=== PATIENT | female | born 1970 | race Caucasian/White ===

== ENCOUNTER 2017-05-06 00:22 | Emergency (ER) | payer BC ==
[2017-05-06] MEDS: MAGNESIUM HYDROXIDE/AL HYDROX 30 ML, LIDOCAINE VISC 2% 200 MG PO ONE ×2 (00:35)
[2017-05-06] MEDS: ONDANSETRON HCL IV 4 MG/2 ML VIAL IVP ONE (00:36)
[2017-05-06] MEDS: 0.9 % SODIUM CHLORIDE 1,000 ML BAG IV ONE (00:41)
[2017-05-06 00:53] LABS: BASO % 1.1 % (0-6); EOS % 7.7 % (0-6); GRAN % 38.1 % (47-80); HEMATOCRIT 42.1 % (35.0-47.0); HEMOGLOBIN 14.1 gm/dl (11.6-16.0); MEAN CELL VOLUME 89.8 fl (81-97); MEAN CORPUSCULAR HEMOGLOBIN 30.1 pg (27-33); MEAN CORPUSCULAR HGB CONC 33.5 g/dl (32-36); MEAN PLATELET VOLUME 10.3 fl (7.4-10.4); MONO % 8.1 % (0-9); PLATELET COUNT 323 K/uL (130-400); RED BLOOD COUNT 4.69 M/uL (3.80-5.40); RED CELL DISTRIBUTION WIDTH 13.3 % (11.5-14.5); WHITE BLOOD COUNT W/O DIFF 13.5 K/uL (4.2-12.2)
[2017-05-06 01:20] LABS: ALB/GLOB RATIO 1.6 (1.1-1.8); ALBUMIN 4.5 g/dL (4.0-5.0); ALKALINE PHOSPHATASE 76 U/L (35-104); ALT/SGPT 17 U/L (<33); AST/SGOT 24 U/L (10.0-35.0); BLOOD UREA NITROGEN 20 mg/dL (6-20); CREATININE 0.5 mg/dL (0.5-0.9); EST GLOMERULAR FILTRATION RATE > 60 mL/min; GLUCOSE,RANDOM 100 mg/dL (74-109); LIPASE 50 U/L (13-60); TOTAL PROTEIN 7.4 g/dL (6.6-8.7)
--- NOTE | 2017-05-06 01:30 | Emergency Department Record ---
History of Present Illness - General Chief Complaint: Abdominal Pain Stated Complaint: SEVERE ABD PAIN Time Seen by Provider: 05/06/17 00:31 Source: Patient Mode of Arrival: Ambulatory Limitations: No limitations - History of Present Illness Initial Comments: pt had ap off and on all day then took ibuprofen and pain became much worse. no v/c/d MD Complaint: Abdominal pain -: Hour(s) Location: Epigastric Radiation: Back, Chest Quality: Cramping Consistency: Constant, Getting worse Improves With: Nothing Worsens With: Movement Associated Symptoms: Vomiting - Related Data Previous Rx's Medication Instructions Recorded Omeprazole [Prilosec] 20 mg PO DAILY #20 05/06/17 Allergies Allergy/AdvReac Type Severity Reaction Status Date / Time gluten Allergy GI issues Verified 05/06/17 00:25 Sulfa (Sulfonamide Allergy RASH Verified 07/04/16 09:14 Antibiotics) Travel Screening - Travel/Exposure Within Last 30 Days Have you traveled within the last 30 days?: No - Travel Symptoms Symptom Screening: None Review of Systems Reviewed: No additional complaints except as noted below Constitutional: Reports: As per HPI. Denies: Chills, Fever, Malaise, Night sweats, Weakness, Weight change Eyes: Reports: As per HPI. Denies: Eye discharge, Eye pain, Photophobia, Vision change ENT: Reports: As per HPI. Denies: Congestion, Dental pain, Ear pain, Epistaxis , Hearing loss, Throat pain Respiratory: Reports: As per HPI. Denies: Cough, Dyspnea, Hemoptysis, Stridor, Wheezes Cardiovascular: Reports: As per HPI. Denies: Arrhythmia, Chest pain, Dyspnea on exertion, Edema, Murmurs, Orthopnea, Palpitations, Paroxysmal nocturnal dyspnea, Rheumatic Fever, Syncope Endocrine: Reports: As per HPI. Denies: Fatigue, Heat or cold intolerance, Polydipsia, Polyuria Gastrointestinal: Reports: As per HPI. Denies: Abdominal pain, Constipation, Diarrhea, Hematemesis, Hematochezia, Melena, Nausea, Vomiting Genitourinary: Reports: As per HPI. Denies: Abnormal menses, Discharge, Dyspareunia, Dysuria, Frequency, Hematuria, Incontinence, Retention, Urgency Musculoskeletal: Reports: As per HPI. Denies: Arthralgia, Back pain, Gout, Joint swelling, Myalgia, Neck pain Skin: Reports: As per HPI. Denies: Bruising, Change in color, Change in hair/ nails, Lesions, Pruritus, Rash Neurological: Reports: As per HPI. Denies: Abnormal gait, Confusion, Headache, Numbness, Paresthesias, Seizure, Tingling, Tremors, Vertigo, Weakness Psychiatric: Reports: As per HPI. Denies: Anxiety, Auditory hallucinations, Depression, Homicidal thoughts, Suicidal thoughts, Visual hallucinations Hematological/Lymphatic: Reports: As per HPI. Denies: Anemia, Blood Clots, Easy bleeding, Easy bruising, Swollen glands Past Medical History - SOCIAL HISTORY Smoking Status: Former smoker - RESPIRATORY Hx Respiratory Disorders: No - CARDIOVASCULAR Hx Cardio Disorders: No - NEURO Hx Neuro Disorders: No - GI Hx GI Disorders: Yes Hx Celiac Disease: Yes (gluten free for 10 years) Hx Reflux: Yes Hx Pancreatitis: Yes Hx Ulcer: Yes Comment:: gastroperesis - Hx Genitourinary Disorders: No - ENDOCRINE Hx Diabetes: No Hx Thyroid Disease: No - MUSCULOSKELETAL Hx Musculoskeletal Disorders: No - PSYCH Hx Psych Problems: Yes Hx Anxiety: Yes - HEMATOLOGY/ONCOLOGY Hx Hematology/Oncology Disorders: No Family Medical History Any Significant Family History?: Yes Hx Heart Disease: Father Hx Resp Disorders: Father *Resp Comment: mom w/ PE's Physical Exam - General General Appearance: Alert, Oriented x3, Cooperative, Moderate distress - Head Head exam: Normal inspection - Eye Eye exam: Normal appearance, PERRL, EOMI Pupils: Normal accommodation - ENT ENT exam: Normal exam, Mucous membranes moist, Normal external ear exam, Normal orophraynx Ear exam: Normal external inspection. negative: External canal tenderness Nasal Exam: Normal inspection. negative: Discharge, Sinus tenderness Mouth exam: Normal external inspection, Tongue normal Teeth exam: Normal inspection. negative: Dental caries Throat exam: Normal inspection. negative: Tonsillar erythema, Tonsillar exudate - Neck Neck exam: Normal inspection, Full ROM. negative: Tenderness - Respiratory Respiratory exam: Normal lung sounds bilaterally. negative: Respiratory distress - Cardiovascular Cardiovascular Exam: Regular rate, Normal rhythm, Normal heart sounds - GI/Abdominal GI/Abdominal exam: Soft, Normal bowel sounds, Tenderness - Rectal Rectal exam: Deferred - exam: Deferred - Extremities Extremities exam: Normal inspection, Full ROM, Normal capillary refill. negative: Tenderness - Back Back exam: Reports: Normal inspection, Full ROM. Denies: Muscle spasm, Rash noted, Tenderness - Neurological Neurological exam: Alert, CN II-XII intact, Normal gait, Oriented X3 - Psychiatric Psychiatric exam: Normal affect, Normal mood - Skin Skin exam: Dry, Intact, Normal color, Warm Course Vital Signs 05/06/17 00:25 Temperature 97.4 F L Pulse Rate [ 68 Pulse Ox Probe] Respiratory 24 Rate Blood Pressure 120/92 [Left Arm] Pulse Ox 100 - Reevaluation(s) Reevaluation #1: 05/06/17 01:41 pt feels much better. Medical Decision Making - Lab Data Result diagrams: 05/06/17 00:27 05/06/17 00:27 Lab Results 05/06/17 05/06/17 05/06/17 Range/Units 00:27 00:27 00:27 WBC 13.5 H (4.2-12.2) K/uL RBC 4.69 (3.80-5.40) M/uL Hgb 14.1 (11.6-16.0) gm/dl Hct 42.1 (35.0-47.0) % MCV 89.8 (81-97) fl MCH 30.1 (27-33) pg MCHC 33.5 (32-36) g/dl RDW 13.3 (11.5-14.5) % Plt Count 323 (130-400) K/uL MPV 10.3 (7.4-10.4) fl Gran % 38.1 L (47-80) % Lymphocytes % 45.0 (16-45) % Monocytes % 8.1 (0-9) % Eosinophils % 7.7 H (0-6) % Basophils % 1.1 (0-6) % Sodium 141 (136-145) mmol/L Potassium 3.6 (3.4-4.5) mmol/L Chloride 101 (98-107) mmol/L Carbon Dioxide 24.0 (22-29) mmol/L Anion Gap 16.0 (7-16) BUN 20 (6-20) mg/dL Creatinine 0.5 (0.5-0.9) mg/dL Estimated GFR > 60 mL/min Random Glucose 100 (74-109) mg/dL Calcium 9.4 (8.6-10.0) mg/dL Total Bilirubin 0.20 (0.2-1.0) mg/dL AST 24 (10.0-35.0) U/L ALT 17 (<33) U/L Alkaline Phosphatase 76 (35-104) U/L Total Protein 7.4 (6.6-8.7) g/dL Albumin 4.5 (4.0-5.0) g/dL Globulin 2.9 (1.4-4.8) gm/dL Albumin/Globulin Ratio 1.6 (1.1-1.8) Lipase 50 (13-60) U/L Ethyl Alcohol < 0.010 (0-0.010) g/dL Disposition Disposition: Discharge Clinical Impression: Gastritis Qualifiers: Gastritis type: unspecified gastritis Chronicity: acute Gastritis bleeding: without bleeding Qualified Code(s): K29.00 - Acute gastritis without bleeding Disposition: Home, Self-Care Condition: (1) Good Instructions: Gastritis (ED) Additional Instructions: follow up with dr thompson. return sooner if worse. stop motrin. Prescriptions: Omeprazole [Prilosec] 20 mg PO DAILY #20 cap. Quality - Quality Measures Quality Measures: N/A - Blood Pressure Screening Does Patient Have Any of the Following: No Blood Pressure Classification: Hypertensive Reading Systolic Measurement: 120 Diastolic Measurement: 92 Screening for High Blood Pressure: < Pre-Hypertensive BP, F/U Documented > [ G8950] Pre-Hypertensive Follow-up Interventions: Follow-up with rescreen every year.
[2017-05-06] MEDS: HYDROMORPHONE HCL 1MG/ML **SYRINGE IVP ONE ×2 (01:49→04:48)
--- NOTE | 2017-05-06 04:16 | Emergency Department Record ---
History of Present Illness - General Chief Complaint: Abdominal Pain Stated Complaint: SEVERE ABD PAIN Time Seen by Provider: 05/06/17 00:31 Source: Patient Mode of Arrival: Ambulatory Limitations: No limitations - History of Present Illness MD Complaint: Abdominal pain -: Hour(s) Location: Epigastric Radiation: Back, Chest Quality: Cramping Consistency: Constant, Getting worse Improves With: Nothing Worsens With: Movement Associated Symptoms: Vomiting - Related Data Patient : No Previous Rx's Medication Instructions Recorded Omeprazole [Prilosec] 20 mg PO DAILY #20 05/06/17 Allergies Allergy/AdvReac Type Severity Reaction Status Date / Time gluten Allergy GI issues Verified 05/06/17 00:25 Sulfa (Sulfonamide Allergy RASH Verified 07/04/16 09:14 Antibiotics) Travel Screening - Travel/Exposure Within Last 30 Days Have you traveled within the last 30 days?: No - Travel Symptoms Symptom Screening: None Review of Systems Constitutional: Reports: As per HPI. Denies: Chills, Fever, Malaise, Night sweats, Weakness, Weight change Eyes: Reports: As per HPI. Denies: Eye discharge, Eye pain, Photophobia, Vision change ENT: Reports: As per HPI. Denies: Congestion, Dental pain, Ear pain, Epistaxis , Hearing loss, Throat pain Respiratory: Reports: As per HPI. Denies: Cough, Dyspnea, Hemoptysis, Stridor, Wheezes Cardiovascular: Reports: As per HPI. Denies: Arrhythmia, Chest pain, Dyspnea on exertion, Edema, Murmurs, Orthopnea, Palpitations, Paroxysmal nocturnal dyspnea, Rheumatic Fever, Syncope Endocrine: Reports: As per HPI. Denies: Fatigue, Heat or cold intolerance, Polydipsia, Polyuria Gastrointestinal: Reports: As per HPI. Denies: Abdominal pain, Constipation, Diarrhea, Hematemesis, Hematochezia, Melena, Nausea, Vomiting Genitourinary: Reports: As per HPI. Denies: Abnormal menses, Discharge, Dyspareunia, Dysuria, Frequency, Hematuria, Incontinence, Retention, Urgency Musculoskeletal: Reports: As per HPI. Denies: Arthralgia, Back pain, Gout, Joint swelling, Myalgia, Neck pain Skin: Reports: As per HPI. Denies: Bruising, Change in color, Change in hair/ nails, Lesions, Pruritus, Rash Neurological: Reports: As per HPI. Denies: Abnormal gait, Confusion, Headache, Numbness, Paresthesias, Seizure, Tingling, Tremors, Vertigo, Weakness Psychiatric: Reports: As per HPI. Denies: Anxiety, Auditory hallucinations, Depression, Homicidal thoughts, Suicidal thoughts, Visual hallucinations Hematological/Lymphatic: Reports: As per HPI. Denies: Anemia, Blood Clots, Easy bleeding, Easy bruising, Swollen glands Past Medical History - SOCIAL HISTORY Smoking Status: Former smoker - RESPIRATORY Hx Respiratory Disorders: No - CARDIOVASCULAR Hx Cardio Disorders: No - NEURO Hx Neuro Disorders: No - GI Hx GI Disorders: Yes Hx Celiac Disease: Yes (gluten free for 10 years) Hx Reflux: Yes Hx Pancreatitis: Yes Hx Ulcer: Yes Comment:: gastroperesis - Hx Genitourinary Disorders: No - ENDOCRINE Hx Diabetes: No Hx Thyroid Disease: No - MUSCULOSKELETAL Hx Musculoskeletal Disorders: No - PSYCH Hx Psych Problems: Yes Hx Anxiety: Yes - HEMATOLOGY/ONCOLOGY Hx Hematology/Oncology Disorders: No Family Medical History Any Significant Family History?: Yes Hx Heart Disease: Father Hx Resp Disorders: Father *Resp Comment: mom w/ PE's Physical Exam - General Limitations: No limitations Course Vital Signs 05/06/17 05/06/17 05/06/17 00:25 01:50 02:56 Temperature 97.4 F L Pulse Rate [ 68 52 L 64 Pulse Ox Probe] Respiratory 24 16 16 Rate Blood Pressure 120/92 107/77 95/65 [Left Arm] Pulse Ox 100 100 94 L 05/06/17 04:04 Temperature 97.9 F Pulse Rate [ 58 L Pulse Ox Probe] Respiratory 18 Rate Blood Pressure 94/67 [Left Arm] Pulse Ox 97 - Reevaluation(s) Reevaluation #1: 05/06/17 04:09 pt had a few episodes of hypoxia so ct was done. Medical Decision Making - Lab Data Result diagrams: 05/06/17 00:27 05/06/17 00:27 Lab Results 05/06/17 05/06/17 05/06/17 Range/Units 00:01 00:27 00:27 WBC 13.5 H (4.2-12.2) K/uL RBC 4.69 (3.80-5.40) M/uL Hgb 14.1 (11.6-16.0) gm/dl Hct 42.1 (35.0-47.0) % MCV 89.8 (81-97) fl MCH 30.1 (27-33) pg MCHC 33.5 (32-36) g/dl RDW 13.3 (11.5-14.5) % Plt Count 323 (130-400) K/uL MPV 10.3 (7.4-10.4) fl Gran % 38.1 L (47-80) % Lymphocytes % 45.0 (16-45) % Monocytes % 8.1 (0-9) % Eosinophils % 7.7 H (0-6) % Basophils % 1.1 (0-6) % D-Dimer 0.57 (0-0.59) mg/L FEU Sodium 141 (136-145) mmol/L Potassium 3.6 (3.4-4.5) mmol/L Chloride 101 (98-107) mmol/L Carbon Dioxide 24.0 (22-29) mmol/L Anion Gap 16.0 (7-16) BUN 20 (6-20) mg/dL Creatinine 0.5 (0.5-0.9) mg/dL Estimated GFR > 60 mL/min Random Glucose 100 (74-109) mg/dL Calcium 9.4 (8.6-10.0) mg/dL Total Bilirubin 0.20 (0.2-1.0) mg/dL AST 24 (10.0-35.0) U/L ALT 17 (<33) U/L Alkaline Phosphatase 76 (35-104) U/L Total Protein 7.4 (6.6-8.7) g/dL Albumin 4.5 (4.0-5.0) g/dL Globulin 2.9 (1.4-4.8) gm/dL Albumin/Globulin Ratio 1.6 (1.1-1.8) Lipase 50 (13-60) U/L Ethyl Alcohol (0-0.010) g/dL 05/06/17 Range/Units 00:27 WBC (4.2-12.2) K/uL RBC (3.80-5.40) M/uL Hgb (11.6-16.0) gm/dl Hct (35.0-47.0) % MCV (81-97) fl MCH (27-33) pg MCHC (32-36) g/dl RDW (11.5-14.5) % Plt Count (130-400) K/uL MPV (7.4-10.4) fl Gran % (47-80) % Lymphocytes % (16-45) % Monocytes % (0-9) % Eosinophils % (0-6) % Basophils % (0-6) % D-Dimer (0-0.59) mg/L FEU Sodium (136-145) mmol/L Potassium (3.4-4.5) mmol/L Chloride (98-107) mmol/L Carbon Dioxide (22-29) mmol/L Anion Gap (7-16) BUN (6-20) mg/dL Creatinine (0.5-0.9) mg/dL Estimated GFR mL/min Random Glucose (74-109) mg/dL Calcium (8.6-10.0) mg/dL Total Bilirubin (0.2-1.0) mg/dL AST (10.0-35.0) U/L ALT (<33) U/L Alkaline Phosphatase (35-104) U/L Total Protein (6.6-8.7) g/dL Albumin (4.0-5.0) g/dL Globulin (1.4-4.8) gm/dL Albumin/Globulin Ratio (1.1-1.8) Lipase (13-60) U/L Ethyl Alcohol < 0.010 (0-0.010) g/dL Disposition Disposition: Discharge Clinical Impression: Gastritis Qualifiers: Gastritis type: unspecified gastritis Chronicity: acute Gastritis bleeding: without bleeding Qualified Code(s): K29.00 - Acute gastritis without bleeding Disposition: Home, Self-Care Condition: (1) Good Instructions: Gastritis (ED) Additional Instructions: follow up with dr thompson. return sooner if worse. stop motrin. have repeat chest cat scan in 6 months to further evaluate lung nodules Prescriptions: Omeprazole [Prilosec] 20 mg PO DAILY #20 cap.dr Forms: Return to Work/School Quality - Quality Measures Quality Measures: N/A - Blood Pressure Screening Does Patient Have Any of the Following: No Blood Pressure Classification: Normal BP Reading Systolic Measurement: 94 Diastolic Measurement: 67 Screening for High Blood Pressure: < Normal BP, F/U Not Required > [G8783]
--- NOTE | 2017-05-07 13:46 | CT ANGIOGRAM REPORT ---
DATE: 05/06/2017. EXAM: CT ANGIOGRAM OF THE CHEST. HISTORY: Decreased oxygen saturation. TECHNIQUE: CTA of the chest was performed using pulmonary embolus protocol following the intravenous administration of 73 mL of Omnipaque 350 contrast. Axial images were obtained with coronal and sagittal MIP reconstructions. COMPARISON: None. FINDINGS: The mediastinal vasculature enhances normally. There is no intraluminal filling defect to suggest pulmonary embolus. Negative for thoracic aortic aneurysm or dissection. The heart and pericardium are unremarkable. Limited evaluation of the upper abdomen is unremarkable. Osseous structures are grossly intact. No pneumothorax. The visualized airways are patent. Minor subpleural reticulation with emphysematous changes in the upper lobes and apices. The lungs are otherwise clear. Dependent atelectasis in each lung base. IMPRESSION: NEGATIVE FOR AN ACUTE INTRATHORACIC PROCESS. MINOR SUBPLEURAL RETICULATION AND EMPHYSEMATOUS CHANGES IN THE LUNG APICES. JOB NUMBER: [id number] MTDD
--- NOTE | 2017-05-07 13:48 | RADIOLOGY REPORT ---
DATE: 05/06/2017. EXAM: TWO VIEWS OF THE CHEST. HISTORY: Decreased oxygen saturation. TECHNIQUE: Frontal and lateral views of the chest. COMPARISON: None. FINDINGS: Heart size is normal. The lungs are clear. No pneumothorax. IMPRESSION: NEGATIVE CHEST. JOB NUMBER: [id number] MTDD
== END 2017-05-06 05:30 | disposition home or self-care (01) ==
LOC: ER 00:22
DX: K29.00 Acute gastritis without bleeding (principal); R09.02 Hypoxemia; R10.13 Epigastric pain; R11.11 Vomiting without nausea
CPT/HCPCS: 99284 ×2; 96376; 96374; 96375; 96361; 83690; 85025; 80053; 85379; 71020; 71275; G0480; Q9967; J2405; J1170; 80320; J7030

== ENCOUNTER 2018-02-14 17:54 | Emergency (ER) | payer BC ==
[2018-02-14] MEDS ORDERED: HYOSCYAMINE SULFATE ODT 0.125 MG TAB.SUBL SL ONE (18:25)
[2018-02-14] MEDS ORDERED: 0.9 % SODIUM CHLORIDE 1000ML 1,000 ML IV SCH (18:30)
--- NOTE | 2018-02-14 18:32 | Emergency Department Record ---
History of Present Illness - General Chief Complaint: Abdominal Pain Stated Complaint: LOWER ABDOMINAL PAIN Time Seen by Provider: 02/14/18 18:13 Source: Patient Mode of Arrival: Ambulatory Limitations: No limitations - History of Present Illness Initial Comments: 47 yo female presents to ED for evaluation of LLQ abdominal pain symptoms that began earlier this morning. Patient denies fevers, chills, nausea, vomiting, or loose stools. Patient denies blood in the stool. Patient reports a history celiac and gastroparesis, denies history of diverticulitis. Patient also reports history of cholecystectomy and appendectomy. MD Complaint: Abdominal pain Onset/Timin -: Hour(s) Location: LUQ, RUQ Radiation: None Migration to: No migration Severity scale (1-10): 6 Quality: Cramping Consistency: Constant, Intermittent Improves With: Nothing Worsens With: Movement Associated Symptoms: Denies other symptoms - Related Data Patient : No Allergies Allergy/AdvReac Type Severity Reaction Status Date / Time gluten Allergy GI issues Verified 05/06/17 00:25 Sulfa (Sulfonamide Allergy RASH Verified 07/04/16 09:14 Antibiotics) Travel Screening - Travel/Exposure Within Last 30 Days Have you traveled within the last 30 days?: No Review of Systems Constitutional: Denies: Chills, Fever, Malaise, Night sweats Eyes: Denies: Eye discharge, Eye pain ENT: Denies: Congestion, Ear pain, Epistaxis Respiratory: Denies: Cough, Dyspnea Cardiovascular: Denies: Chest pain, Dyspnea on exertion Endocrine: Denies: Fatigue, Heat or cold intolerance Gastrointestinal: Reports: Abdominal pain. Denies: Constipation, Diarrhea, Nausea, Vomiting Genitourinary: Denies: Incontinence, Retention Musculoskeletal: Denies: Arthralgia, Back pain Skin: Denies: Bruising, Change in color Neurological: Denies: Abnormal gait, Confusion, Headache Psychiatric: Denies: Anxiety Hematological/Lymphatic: Denies: Anemia, Blood Clots Past Medical History - SOCIAL HISTORY Smoking Status: Former smoker Alcohol Use: None Drug Use: None - RESPIRATORY Hx Respiratory Disorders: No - CARDIOVASCULAR Hx Cardio Disorders: No - NEURO Hx Neuro Disorders: No - GI Hx GI Disorders: Yes Hx Celiac Disease: Yes (gluten free for 10 years) Hx Reflux: Yes Hx Pancreatitis: Yes Hx Ulcer: Yes Comment:: gastroperesis - Hx Genitourinary Disorders: No - ENDOCRINE Hx Diabetes: No Hx Thyroid Disease: No - MUSCULOSKELETAL Hx Musculoskeletal Disorders: No - PSYCH Hx Psych Problems: Yes Hx Anxiety: Yes - HEMATOLOGY/ONCOLOGY Hx Hematology/Oncology Disorders: No Family Medical History Any Significant Family History?: Yes Hx Heart Disease: Father Hx Resp Disorders: Father *Resp Comment: mom w/ PE's Physical Exam - General General Appearance: Alert, Oriented x3, Cooperative, Moderate distress Limitations: No limitations - Head Head exam: Atraumatic, Normocephalic, Normal inspection Head exam detail: negative: Abrasion, Contusion, Mcgee's sign, General tenderness, Hematoma, Laceration - Eye Eye exam: Normal appearance. negative: Conjunctival injection, Periorbital swelling, Periorbital tenderness, Scleral icterus - ENT Ear exam: negative: Auricular hematoma, Auricular trauma Nasal Exam: negative: Active bleeding, Discharge, Dried blood, Foreign body Mouth exam: negative: Drooling, Laceration, Muffled voice, Tongue elevation - Neck Neck exam: Normal inspection. negative: Meningismus, Tenderness - Respiratory Respiratory exam: Normal lung sounds bilaterally. negative: Respiratory distress, Rhonchi, Stridor, Wheezes - Cardiovascular Cardiovascular Exam: Regular rate, Normal rhythm, Normal heart sounds - GI/Abdominal GI/Abdominal exam: Soft, Tenderness (TTP LLQ>RLQ, no reboung, guarding, or peritoneal signs). negative: Rebound, Rigid - Rectal Rectal exam: Deferred - exam: Deferred - Extremities Extremities exam: Normal inspection. negative: Pedal edema, Tenderness - Back Back exam: Denies: CVA tenderness (R), CVA tenderness (L) - Neurological Neurological exam: Alert, Normal gait, Oriented X3 - Psychiatric Psychiatric exam: Normal affect, Normal mood - Skin Skin exam: Normal color. negative: Abrasion Type of lesion: negative: abrasion Course Vital Signs 02/14/18 17:57 Temperature 98.1 F Pulse Rate 83 Respiratory 16 Rate Blood Pressure 103/55 Pulse Ox 96 - Reevaluation(s) Reevaluation #1: 02/14/18 19:32 Labs reviewed and are grossly unremarkable for an acute process. UA pending. CT Abdomen and Pelvis: No acute process post-op calin/appy. Reevaluation #2: 02/14/18 20:10 UA appears negative for an acute process. Patient was updated on all results, again reports improvement following Ofirmev. Patient also reports that she has Levsin at home for her symptoms. Patient verbalizes understanding of all instructions, and appears stable for discharge at this time with return for worsening of her symptoms. Medical Decision Making - Lab Data Result diagrams: 02/14/18 18:42 02/14/18 18:42 Disposition Disposition: Discharge Clinical Impression: Abdominal pain Qualifiers: Abdominal location: left lower quadrant Qualified Code(s): R10.32 - Left lower quadrant pain Disposition: Home, Self-Care Condition: (2) Stable Instructions: Abdominal Pain (ED) Additional Instructions: Return to ED if your symptoms worsen or if you have any concerns. Continue Levsin as directed. Follow-up with your family doctor in 1-3 days as directed. Forms: Patient Portal Access Time of Disposition: 20:13 Quality - Quality Measures Quality Measures: N/A - Blood Pressure Screening Does Patient Have Any of the Following: No Blood Pressure Classification: Normal BP Reading Systolic Measurement: 103 Diastolic Measurement: 55 Screening for High Blood Pressure: < Normal BP, F/U Not Required > [G8783]
[2018-02-14 18:50] LABS: BASO % 0.6 % (0-6); EOS % 7.4 % (0-6); GRAN % 56.5 % (47-80); HEMATOCRIT 42.1 % (35.0-47.0); HEMOGLOBIN 13.9 gm/dl (11.6-16.0); LYMPH % 28.9 % (16-45); MEAN CELL VOLUME 93.8 fl (81-97); MEAN PLATELET VOLUME 10.2 fl (7.4-10.4); MONO % 6.6 % (0-9); PLATELET COUNT 291 K/uL (130-400); RED BLOOD COUNT 4.49 M/uL (3.80-5.40); RED CELL DISTRIBUTION WIDTH 13.9 % (11.5-14.5); WHITE BLOOD COUNT W/O DIFF 12.2 K/uL (4.2-12.2)
[2018-02-14 18:57] LABS: BILIRUBIN,TOTAL < 0.20 mg/dL (0.2-1.0); BLOOD UREA NITROGEN 16 mg/dL (6-20); CREATININE 0.5 mg/dL (0.5-0.9); EST GLOMERULAR FILTRATION RATE > 60 mL/min
[2018-02-14 18:58] LABS: TOTAL PROTEIN 6.7 g/dL (6.6-8.7)
[2018-02-14 19:00] LABS: GLUCOSE,RANDOM 94 mg/dL (74-109)
[2018-02-14 19:02] LABS: ALB/GLOB RATIO 1.8 (1.1-1.8); ALBUMIN 4.3 g/dL (4.0-5.0); ALT/SGPT 16 U/L (<33); AST/SGOT 17 U/L (10.0-35.0)
[2018-02-14 19:03] LABS: ALKALINE PHOSPHATASE 65 U/L (35-104); LIPASE 33 U/L (13-60)
[2018-02-14] MEDS ORDERED: ACETAMINOPHEN 1,000 MG/100 ML BTL IVPB ONE (19:23)
[2018-02-14 20:02] LABS: URINE APPEARANCE CLEAR; URINE BILIRUBIN NEGATIVE (NEGATIVE); URINE BLOOD SMALL (NEGATIVE); URINE COLOR YELLOW; URINE GLUCOSE (UA) NEGATIVE (NEGATIVE); URINE KETONE NEGATIVE (NEGATIVE); URINE LEUKOCYTE ESTERASE NEGATIVE (NEGATIVE); URINE NITRITE NEGATIVE (NEGATIVE); URINE PROTEIN NEGATIVE (NEGATIVE); URINE UROBILINOGEN 0.2 E.U./dL (0.20 - 1.00)
[2018-02-15 03:29] LABS: URINE BACTERIA NONE SEEN; URINE EPITHELIAL CELLS 0 - 2 (FEW); URINE RBC 0 - 2 (NONE SEEN); URINE WBC 0 - 2 (0-2/hpf)
--- NOTE | 2018-02-15 14:55 | CT SCAN REPORT ---
EXAM: CT OF THE ABDOMEN AND PELVIS HISTORY: LEFT LOWER SIDED PAIN. TECHNIQUE: CT of the abdomen and pelvis was performed following IV administration of 80 ml of Omnipaque 300 contrast. Oral contrast was also utilized. Comparison: Prior CT from 07/04/16. FINDINGS: Limited evaluation of the lung bases is unremarkable. The osseous structures are grossly intact. The liver, spleen, adrenal glands, pancreas, and kidneys are unremarkable. Surgical absence of the gallbladder. There is a large amount of stool in the colon. No gross evidence for bowel obstruction. No free air or free fluid. The bowel is nonopacified with contrast. This significantly limits evaluation. The patient is status post appendectomy. IMPRESSION: NEGATIVE FOR ACUTE INTRAABDOMINAL/PELVIC PROCESS. POST SURGICAL CHANGES, ABOVE. JOB NUMBER: [id number] MTDD
== END 2018-02-14 20:18 | disposition home or self-care (01) ==
LOC: ER 17:54
DX: R10.32 Left lower quadrant pain (principal); Z87.891 Personal history of nicotine dependence
CPT/HCPCS: 74177; 80053; 81001; 83690; 85025; 96365; 99284; J7030

== ENCOUNTER 2018-06-23 16:43 | Emergency (ER) | payer BC ==
[2018-06-23] MEDS ORDERED: KETOROLAC 30 MG/ML VIAL IVP ONE (17:39)
[2018-06-23 17:56] LABS: HEMOGLOBIN 13.8 gm/dl (11.6-16.0); MEAN CELL VOLUME 92.3 fl (81-97); MEAN CORPUSCULAR HEMOGLOBIN 30.3 pg (27-33); MEAN CORPUSCULAR HGB CONC 32.9 g/dl (32-36); MEAN PLATELET VOLUME 9.9 fl (7.4-10.4); PLATELET COUNT 326 K/uL (130-400); RED BLOOD COUNT 4.55 M/uL (3.80-5.40); RED CELL DISTRIBUTION WIDTH 13.2 % (11.5-14.5); WHITE BLOOD COUNT W/O DIFF 10.8 K/uL (4.2-12.2)
[2018-06-23 18:11] LABS: BILIRUBIN,TOTAL < 0.20 mg/dL (0.2-1.0); BLOOD UREA NITROGEN 19 mg/dL (6-20); CREATININE 0.6 mg/dL (0.5-0.9); EST GLOMERULAR FILTRATION RATE > 60 mL/min
[2018-06-23 18:14] LABS: GLUCOSE,RANDOM 103 mg/dL (74-109)
[2018-06-23] MEDS ORDERED: ORPHENADRINE CITRATE 60MG/2ML VIAL IM ONE (18:14)
[2018-06-23] MEDS ORDERED: HYDROMORPHONE HCL 2 MG/ML VIAL IVP ONE (18:14)
[2018-06-23 18:16] LABS: ALT/SGPT 16 U/L (<33); AST/SGOT 19 U/L (10.0-35.0)
--- NOTE | 2018-06-23 18:16 | Emergency Department Record ---
History of Present Illness - General Chief complaint: Extremity Problem Stated complaint: PAIN ON LT SIDE OF NECH AND ARM Time Seen by Provider: 06/23/18 17:28 Source: Patient Mode of Arrival: Ambulatory Limitations: No limitations - History of Present Illness Initial comments: pt has pain in her neck and upper back and l shoulder that radiates down her l arm. she has had similar pain in the past but never as bad as this. she does not recall doing anything to exacerbate this. movement makes it worse. palpation makes it worse. MD Complaint: Extremity pain, Neck Pain Location: Left, Shoulder, Other History of Same: No Radiation: Proximal Severity scale (1-10): 10 Quality: Sharp Consistency: Constant Improves with: Immobilization Worsens with: Exertion, Palpation Associated Symptoms: Denies other symptoms - Related Data Home Medications Medication Instructions Recorded Confirmed Last Taken Cyclobenzaprine HCl [Flexeril] 10 mg PO TID 06/23/18 06/23/18 Unknown Previous Rx's Medication Instructions Recorded Diazepam [Valium] 5 mg PO Q8H #10 tab 06/23/18 Hydrocodone/Acetaminophen [[place] 1 each PO Q6HR #10 tablet 06/23/18 5-325 Tablet] Ibuprofen [Motrin 600Mg] 600 mg PO Q6H #20 tablet 06/23/18 Allergies Allergy/AdvReac Type Severity Reaction Status Date / Time gluten Allergy GI issues Verified 06/23/18 17:02 Sulfa (Sulfonamide Allergy RASH Verified 06/23/18 17:02 Antibiotics) Travel Screening - Travel/Exposure Within Last 30 Days Have you traveled within the last 30 days?: No Review of Systems Reviewed: No additional complaints except as noted below Constitutional: Reports: As per HPI. Denies: Chills, Fever, Malaise, Night sweats, Weakness, Weight change Eyes: Reports: As per HPI. Denies: Eye discharge, Eye pain, Photophobia, Vision change ENT: Reports: As per HPI. Denies: Congestion, Dental pain, Ear pain, Epistaxis , Hearing loss, Throat pain Respiratory: Reports: As per HPI. Denies: Cough, Dyspnea, Hemoptysis, Stridor, Wheezes Cardiovascular: Reports: As per HPI. Denies: Arrhythmia, Chest pain, Dyspnea on exertion, Edema, Murmurs, Orthopnea, Palpitations, Paroxysmal nocturnal dyspnea, Rheumatic Fever, Syncope Endocrine: Reports: As per HPI. Denies: Fatigue, Heat or cold intolerance, Polydipsia, Polyuria Gastrointestinal: Reports: As per HPI. Denies: Abdominal pain, Constipation, Diarrhea, Hematemesis, Hematochezia, Melena, Nausea, Vomiting Genitourinary: Reports: As per HPI. Denies: Abnormal menses, Discharge, Dyspareunia, Dysuria, Frequency, Hematuria, Incontinence, Retention, Urgency Musculoskeletal: Reports: As per HPI, Myalgia, Neck pain. Denies: Arthralgia, Back pain, Gout, Joint swelling Skin: Reports: As per HPI. Denies: Bruising, Change in color, Change in hair/ nails, Lesions, Pruritus, Rash Neurological: Reports: As per HPI. Denies: Abnormal gait, Confusion, Headache, Numbness, Paresthesias, Seizure, Tingling, Tremors, Vertigo, Weakness Psychiatric: Reports: As per HPI. Denies: Anxiety, Auditory hallucinations, Depression, Homicidal thoughts, Suicidal thoughts, Visual hallucinations Hematological/Lymphatic: Reports: As per HPI. Denies: Anemia, Blood Clots, Easy bleeding, Easy bruising, Swollen glands Past Medical History - SOCIAL HISTORY Smoking Status: Former smoker Alcohol Use: None Drug Use: None - RESPIRATORY Hx Respiratory Disorders: No - CARDIOVASCULAR Hx Cardio Disorders: No - NEURO Hx Neuro Disorders: No - GI Hx GI Disorders: Yes Hx Celiac Disease: Yes Hx Reflux: Yes Hx Pancreatitis: Yes Hx Ulcer: Yes Comment:: gastroperesis - Hx Genitourinary Disorders: No - ENDOCRINE Hx Endocrine Disorders: No Hx Diabetes: No Hx Thyroid Disease: No - MUSCULOSKELETAL Hx Musculoskeletal Disorders: No - PSYCH Hx Psych Problems: Yes Hx Anxiety: Yes - HEMATOLOGY/ONCOLOGY Hx Hematology/Oncology Disorders: No Family Medical History Any Significant Family History?: Yes Hx Heart Disease: Father Hx Resp Disorders: Father *Resp Comment: mom w/ PE's Physical Exam - General General Appearance: Alert, Oriented x3, Cooperative, Mild distress - Head Head exam: Normal inspection - Eye Eye exam: Normal appearance, PERRL, EOMI Pupils: Normal accommodation - ENT ENT exam: Normal exam, Mucous membranes moist, Normal external ear exam, Normal orophraynx Ear exam: Normal external inspection. negative: External canal tenderness Nasal Exam: Normal inspection. negative: Discharge, Sinus tenderness Mouth exam: Normal external inspection, Tongue normal Teeth exam: Normal inspection. negative: Dental caries Throat exam: Normal inspection. negative: Tonsillar erythema, Tonsillar exudate - Neck Neck exam: Normal inspection, Full ROM. negative: Tenderness - Respiratory Respiratory exam: Normal lung sounds bilaterally. negative: Respiratory distress - Cardiovascular Cardiovascular Exam: Regular rate, Normal rhythm, Normal heart sounds - GI/Abdominal GI/Abdominal exam: Soft, Normal bowel sounds. negative: Tenderness - Rectal Rectal exam: Deferred - exam: Deferred - Extremities Extremities exam: Normal inspection, Full ROM, Normal capillary refill, Tenderness (l shoulder) - Back Back exam: Reports: Full ROM, Muscle spasm, Paraspinal tenderness, Tenderness. Denies: Rash noted - Neurological Neurological exam: Alert, CN II-XII intact, Normal gait, Oriented X3 - Psychiatric Psychiatric exam: Normal affect, Normal mood - Skin Skin exam: Dry, Intact, Normal color, Warm Course Vital Signs 06/23/18 17:00 Temperature 98.0 F Pulse Rate 78 Respiratory 18 Rate Blood Pressure 105/70 Pulse Ox 98 - Reevaluation(s) Reevaluation #1: 06/23/18 18:37 pt feels better Medical Decision Making - Lab Data Result diagrams: 06/23/18 17:40 06/23/18 17:40 Lab Results 06/23/18 Range/Units 17:40 WBC 10.8 (4.2-12.2) K/uL RBC 4.55 (3.80-5.40) M/uL Hgb 13.8 (11.6-16.0) gm/dl Hct 42.0 (35.0-47.0) % MCV 92.3 (81-97) fl MCH 30.3 (27-33) pg MCHC 32.9 (32-36) g/dl RDW 13.2 (11.5-14.5) % Plt Count 326 (130-400) K/uL MPV 9.9 (7.4-10.4) fl Eosinophils % Not Reportable Basophils % Not Reportable Disposition Disposition: Discharge Clinical Impression: Cervical radiculopathy Disposition: Home, Self-Care Condition: (1) Good Instructions: Cervical Radiculopathy (ED) Additional Instructions: follow up with family doctor. return sooner if worse. have MRI of c-spine. use ice and moist heat. take colace when taking taking narcotics Prescriptions: Hydrocodone/Acetaminophen [[place] 5-325 Tablet] 1 each PO Q6HR #10 tablet Diazepam [Valium] 5 mg PO Q8H #10 tab Ibuprofen [Motrin 600Mg] 600 mg PO Q6H #20 tablet Forms: Patient Portal Access Quality - Quality Measures Quality Measures: N/A - Blood Pressure Screening Does Patient Have Any of the Following: No Blood Pressure Classification: Normal BP Reading Systolic Measurement: 105 Diastolic Measurement: 70 Screening for High Blood Pressure: < Normal BP, F/U Not Required > [G8783]
[2018-06-23 18:17] LABS: ALB/GLOB RATIO 1.7 (1.1-1.8); ALBUMIN 4.4 g/dL (4.0-5.0); ALKALINE PHOSPHATASE 81 U/L (35-104)
[2018-06-23] MEDS ORDERED: AL HYDROX/MAG HYDROX 30ML UD PO ONE (18:55)
--- NOTE | 2018-06-24 19:41 | RADIOLOGY REPORT ---
EXAM: CERVICAL SPINE AP & LATERAL HISTORY: PAIN. TECHNIQUE: Two views of the cervical spine were performed. FINDINGS: No evidence of fracture, subluxation, or perched facet. The lateral masses are well aligned. IMPRESSION: NEGATIVE CERVICAL SPINE EXAMINATION. JOB NUMBER: [id number] MTDD
== END 2018-06-23 19:04 | disposition home or self-care (01) ==
LOC: ER 16:43
DX: M54.12 Radiculopathy, cervical region (principal); Z87.891 Personal history of nicotine dependence
CPT/HCPCS: 99284 ×2; 96374; 96372; 96375; 80053; 85027; 72040; 93005; 93010; J1885; J1170; J2360

== ENCOUNTER 2018-10-09 19:02 | Emergency (ER) | payer BC ==
[2018-10-09] MEDS ORDERED: DIAZEPAM (VALIUM) 5MG/ML **10ML VIAL IM ONE (20:01)
[2018-10-09] MEDS: KETOROLAC 30 MG/ML VIAL IM ONE (20:10)
[2018-10-09] MEDS: ONDANSETRON HCL IV 4 MG/2 ML VIAL IM ONE (20:10)
[2018-10-09] MEDS: HYDROMORPHONE HCL 2 MG/ML VIAL IM ONE (20:10)
[2018-10-09] MEDS: DIAZEPAM 5 MG TABLET PO ONE (20:11)
[2018-10-09] MEDS: AL HYDROX/MAG HYDROX 30ML UD PO ONE (20:25)
[2018-10-09] MEDS: PANTOPRAZOLE SODIUM 40 MG TABLET PO ONE (20:54)
--- NOTE | 2018-10-09 20:54 | Emergency Department Record ---
History of Present Illness - General Chief Complaint: Neck Injury/Pain Stated Complaint: LT SHOULDER PAIN Time Seen by Provider: 10/09/18 19:51 Source: Patient Mode of Arrival: Ambulatory Limitations: No limitations - History of Present Illness Initial Comments: pt has scapular shoulder pain. she has had this before and is going to a rehab . she had a stressful day yesterday with severaal hours of bad road driving and her shoulder pain has been worse. she went for a massage and the pain became worse and she could not tolerate the massage. she states she has had a cervical mri that was inconclusive. she gets numbness in her l hand MD Complaint: Upper back pain Onset/Timin -: Days(s) Place: Home Radiation: Left upper extremity Severity: Severe, Similar to prior neck pain Severity scale (1-10): 10 Quality: Aching Consistency: Constant Improves With: None Worsens With: None Context: Other Associated Symptoms: Numbness Treatments Prior to Arrival: Ibuprofen Treatment Prior to Arrival Comment:: In AM - Related Data Previous Rx's Medication Instructions Recorded Ibuprofen [Motrin 600Mg] 600 mg PO Q6H #20 tablet 06/23/18 Diazepam [Valium] 2 mg PO TID #10 tab 10/09/18 Hydrocodone/Acetaminophen [[place] 1 each PO Q6HR #7 tablet 10/09/18 5-325 Tablet] Allergies Allergy/AdvReac Type Severity Reaction Status Date / Time gluten Allergy GI issues Verified 06/23/18 17:02 Sulfa (Sulfonamide Allergy RASH Verified 06/23/18 17:02 Antibiotics) Travel Screening - Travel/Exposure Within Last 30 Days Have you traveled within the last 30 days?: No Review of Systems Reviewed: No additional complaints except as noted below Constitutional: Reports: As per HPI. Denies: Chills, Fever, Malaise, Night sweats, Weakness, Weight change Eyes: Reports: As per HPI. Denies: Eye discharge, Eye pain, Photophobia, Vision change ENT: Reports: As per HPI. Denies: Congestion, Dental pain, Ear pain, Epistaxis , Hearing loss, Throat pain Respiratory: Reports: As per HPI. Denies: Cough, Dyspnea, Hemoptysis, Stridor, Wheezes Cardiovascular: Reports: As per HPI. Denies: Arrhythmia, Chest pain, Dyspnea on exertion, Edema, Murmurs, Orthopnea, Palpitations, Paroxysmal nocturnal dyspnea, Rheumatic Fever, Syncope Endocrine: Reports: As per HPI. Denies: Fatigue, Heat or cold intolerance, Polydipsia, Polyuria Gastrointestinal: Reports: As per HPI. Denies: Abdominal pain, Constipation, Diarrhea, Hematemesis, Hematochezia, Melena, Nausea, Vomiting Genitourinary: Reports: As per HPI. Denies: Abnormal menses, Discharge, Dyspareunia, Dysuria, Frequency, Hematuria, Incontinence, Retention, Urgency Musculoskeletal: Reports: As per HPI. Denies: Arthralgia, Back pain, Gout, Joint swelling, Myalgia, Neck pain Skin: Reports: As per HPI. Denies: Bruising, Change in color, Change in hair/ nails, Lesions, Pruritus, Rash Neurological: Reports: As per HPI. Denies: Abnormal gait, Confusion, Headache, Numbness, Paresthesias, Seizure, Tingling, Tremors, Vertigo, Weakness Psychiatric: Reports: As per HPI. Denies: Anxiety, Auditory hallucinations, Depression, Homicidal thoughts, Suicidal thoughts, Visual hallucinations Hematological/Lymphatic: Reports: As per HPI. Denies: Anemia, Blood Clots, Easy bleeding, Easy bruising, Swollen glands Past Medical History - SOCIAL HISTORY Smoking Status: Former smoker Alcohol Use: Occasional Drug Use: None - RESPIRATORY Hx Respiratory Disorders: No - CARDIOVASCULAR Hx Cardio Disorders: No - NEURO Hx Neuro Disorders: No - GI Hx GI Disorders: Yes Hx Celiac Disease: Yes Hx Reflux: Yes Hx Pancreatitis: Yes Hx Ulcer: Yes Comment:: gastroperesis - Hx Genitourinary Disorders: No - ENDOCRINE Hx Endocrine Disorders: No Hx Diabetes: No Hx Thyroid Disease: No - MUSCULOSKELETAL Hx Musculoskeletal Disorders: No - PSYCH Hx Psych Problems: Yes Hx Anxiety: Yes - HEMATOLOGY/ONCOLOGY Hx Hematology/Oncology Disorders: No Family Medical History Any Significant Family History?: Yes Hx Heart Disease: Father Hx Resp Disorders: Father *Resp Comment: mom w/ PE's Physical Exam - General General Appearance: Alert, Oriented x3, Cooperative, Mild distress - Head Head exam: Normal inspection - Eye Eye exam: Normal appearance, PERRL, EOMI Pupils: Normal accommodation - ENT ENT exam: Normal exam, Mucous membranes moist, Normal external ear exam, Normal orophraynx Ear exam: Normal external inspection. negative: External canal tenderness Nasal Exam: Normal inspection. negative: Discharge, Sinus tenderness Mouth exam: Normal external inspection, Tongue normal Teeth exam: Normal inspection. negative: Dental caries Throat exam: Normal inspection. negative: Tonsillar erythema, Tonsillar exudate - Neck Neck exam: Normal inspection, Full ROM. negative: Tenderness - Respiratory Respiratory exam: Normal lung sounds bilaterally. negative: Respiratory distress - Cardiovascular Cardiovascular Exam: Regular rate, Normal rhythm, Normal heart sounds - GI/Abdominal GI/Abdominal exam: Soft, Normal bowel sounds. negative: Tenderness - Rectal Rectal exam: Deferred - exam: Deferred - Extremities Extremities exam: Normal inspection, Full ROM, Normal capillary refill. negative: Tenderness - Back Back exam: Reports: Normal inspection, Full ROM. Denies: Muscle spasm, Rash noted, Tenderness - Neurological Neurological exam: Alert, CN II-XII intact, Normal gait, Oriented X3 - Psychiatric Psychiatric exam: Normal affect, Normal mood - Skin Skin exam: Dry, Intact, Normal color, Warm Course Vital Signs 10/09/18 19:08 Temperature 98.1 F Pulse Rate [ 65 Pulse Ox Probe] Respiratory 20 Rate Blood Pressure 124/86 [Left Arm] Pulse Ox 99 - Reevaluation(s) Reevaluation #1: 10/09/18 21:00 pt feels better Disposition Disposition: Discharge Clinical Impression: Cervical radiculopathy Thoracic myofascial strain Qualifiers: Encounter type: initial encounter Qualified Code(s): S29.019A - Strain of muscle and tendon of unspecified wall of thorax, initial encounter Disposition: Home, Self-Care Condition: (1) Good Instructions: Cervical Radiculopathy (ED), Muscle Spasm (ED), Thoracic Pain (ED ) Additional Instructions: follow up with family doctor and with dr inna Pozo [place] [facility] [place] [place]. rotate ice and heat. return sooner if worse Prescriptions: Hydrocodone/Acetaminophen [[place] 5-325 Tablet] 1 each PO Q6HR #7 tablet Diazepam [Valium] 2 mg PO TID #10 tab Forms: Patient Portal Access Quality - Quality Measures Quality Measures: N/A - Blood Pressure Screening Does Patient Have Any of the Following: No Blood Pressure Classification: Pre-Hypertensive BP Reading Systolic Measurement: 124 Diastolic Measurement: 86 Screening for High Blood Pressure: < Pre-Hypertensive BP, F/U Documented > [ G8950] Pre-Hypertensive Follow-up Interventions: Follow-up with rescreen every year.
[2018-10-09] MEDS: LIDOCAINE VISC 2% 15ML SOLUTION MM ONE (21:20)
== END 2018-10-09 21:37 | disposition home or self-care (01) ==
LOC: ER 19:02
DX: S29.019A Strain of muscle and tendon of unspecified wall of thorax, initial encounter (principal); M54.12 Radiculopathy, cervical region; X50.1XXA Overexertion from prolonged static or awkward postures, initial encounter
CPT/HCPCS: 99283 ×2; 96372; J3490; J1885; J2405; J1170